=== PATIENT | male | born 1975 | race African-American/Black ===

== ENCOUNTER 2021-01-15 19:07 | Observation (INO) | payer OTHER, SELFPAY ==
--- NOTE | ~2021-01-15 | CT_ITS ---
EXAMINATION: CT brain wo con DATE: 01/15/2021 20:23 INDICATION: Confusion. TECHNIQUE: Computed tomography (CT) of the head was performed without intravenous contrast. The mA wa s adjusted according to patient size. Iterative reconstruction technique was employed. The dose-lengt h product was 983.67 mGy-cm. COMPARISON: None FINDINGS: There is no intracranial hemorrhage, acute infarction, or abnormal intracranial mass lesion . The ventricles are normal in size. The orbits are normal. There is mild mucosal thickening in the e thmoid sinuses. The mastoid air cells are normal. IMPRESSION: 1. Normal brain. Reviewed, dictated and finalized at location A. IMPRESSION: 1. Normal brain.
--- NOTE | ~2021-01-15 | XR_ITS ---
EXAMINATION: XR chest 1V portable DATE: 01/15/2021 20:26 INDICATION: Transient alteration of awareness. TECHNIQUE: A single frontal view of the chest was obtained on 2 radiographs. COMPARISON: None. FINDINGS: There is no pneumonia, pleural effusion, or pneumothorax. The heart size is normal. IMPRESSION: 1. No acute cardiopulmonary disease. Reviewed, dictated and finalized at location A.
--- NOTE | 2021-01-15 19:19 | PC.NURSE ---
Pt presents to ED with EMS with altered mental status. Pt responsive to but is not speaking or communicating with staff. Pt anxious with tremors. Pt has some moderate swelling with a mild abrasion noted to left side of face. Pt has no other obvious signs of trauma or injury. Pt able to manipulate all extremities without difficulty. Pt with $240 wren and multiple lighters in michelet pockets. Money and lighters given to charge to lock in safe.
[2021-01-15 19:25] VITALS: BP 110/84; PULSE 106; RESP 24; O2SAT 95
--- NOTE | 2021-01-15 19:38 | ED.AMS ---
HPI - Altered Mental Status General Chief Complaint: Altered Mental Status Stated Complaint: ams Time Seen by Provider: 01/15/21 19:28 History of Present Illness HPI narrative: Patient brought to the emergency room by ambulance because of found laying down on the ground, no significant other around him at that time, patient found to be jittery, restless, anxious, confused. No more details at this time. Related Data Allergies Allergy/AdvReac Type Severity Reaction Status Date / Time tramadol Allergy Unknown Unverified 07/01/14 16:06 Review of Systems Review of Systems: ROS unobtainable: Yes unobtainable due to mental status PMFSH Past Medical History Medical History (Updated 01/15/21 @ 23:32 by Faizan Fall MD) Hypertension Nicotine dependence Polysubstance abuse Surgical History Surgical History (Updated 01/15/21 @ 23:06 by Ashleigh Hammond PA-C) No history of previous surgery Family History Family History (Updated 01/15/21 @ 23:07 by Ashleigh Hammond PA-C) Other Unknown family medical history Social History Social History Social History: He smokes 1.5 packs of cigarettes a day. Admits to marijuana and methamphetamine use. Unable to designate a surrogate decision maker at this time. Exam Narrative: Exam Narrative: General appearance: Well-developed, well-nourished, restless, unable to lay down still Skin: Normal color Head: Normocephalic, nontraumatic Eyes: Clear conjunctiva ENT: Oropharynx normal, ears normal, nose normal Neck: Supple, nontender Chest and respiratory: Airway patent, no respiratory distress, no accessory muscle use Heart: Regular rate/rhythm Abdomen: Soft, nontender, no organomegaly, quiet bowel sounds Vascular: Normal peripheral pulses, normal capillary refill. Musculoskeletal: Patient keeps moving all over the bed, Neurologic: Alert, does not follow verbal commands Course Course Emergency Course: Stable Reevaluation(s) Reevaluation #1: Few minutes ago patient's called the ED and told him that the patient sent her a text message telling her that he would like to kill himself. Date: 01/15/21 Time: 23:31 Vital Signs Vital signs: Vital Signs Pulse Rate 106 H 01/15/21 19:25 Respiratory Rate 24 H 01/15/21 19:25 Blood Pressure 110/84 01/15/21 19:25 Pulse Oximetry 95 01/15/21 19:25 Temperature 36.7 C 01/15/21 21:33 Pulse Rate 108 H 01/15/21 21:33 Respiratory Rate 17 01/15/21 21:33 Blood Pressure 119/81 01/15/21 21:33 Pulse Oximetry 98 01/15/21 21:33 MDM - Altered Mental Status MDM Narrative Medical decision making narrative: Patient found to be confused at the side of the road, no significant other at the site at that time. Drugs, intracranial pathology, are my concern. Labs, CT head, UA, urine drug screen, chest x-ray, EKG, IV fluid ordered. Further plan to follow Differential Diagnosis Differential diagnosis: Likely alcoholic intoxication, altered mental status, delirium, hypoglycemia, hyponatremia, subarachnoid hemorrhage and sepsis Lab Data Result diagrams: 01/15/21 19:58 01/15/21 19:58 Labs: Lab Results 01/15/21 01/15/21 01/15/21 Range/Units 19:58 19:58 19:58 WBC 4.5 (4.5-10.0) K/mm3 RBC 4.64 (4.6-6.20) M/mm3 Hgb 14.5 (14.0-18.0) g/dL Hct 39.6 L (42.0-52.0) % MCV 85.3 (80-100) fl MCH 31.3 (26-34) pg MCHC 36.6 H (32-36) g/dl RDW 13.5 (11.5-14.5) % Plt Count 179 (150-375) k/mm3 MPV 11.2 H (7.4-10.4) fl Immature Gran % (Auto) 0.2 (0-0.5) % Neut % (Auto) 76.7 H (45.5-73.1) % Lymph % (Auto) 20.2
[2021-01-15 20:02] LABS: Alveolar/Arterial O2 Gradient 17.7 mmHg; Base Excess ABG -0.9 mEq/l (+/-2.0); Fractional Inspired Oxygen 21 %; HCO3 ABG 25.4 mEq/l (22.0-26.0); Oxygen Content ABG 18.6 %vol (16.0-22.0); Oxyhemoglobin 91.3 % THb (90.0-100.0); PCO2 ABG 48.3 mmHg (35.0-45.0); PO2 ABG 74.2 mmHg (80.0-100.0); PO2 FiO2 Ratio Arterial Blood 3.53 %; Total Hemoglobin 14.5 g/dL (12.0-18.0); pH ABG 7.339 (7.350-7.450)
[2021-01-15 20:03] LABS: Device ROOM AIR; Modified Allen's Test Unable to perform; Site Drawn RIGHT RADIAL
[2021-01-15 20:05] LABS: Basophils Percent Auto 0.2 % (0.2-1.2); Hematocrit 39.6 % (42.0-52.0); Hemoglobin 14.5 g/dL (14.0-18.0); Immature Granulocyte Absolute 0.01 K/mm3 (0.00-0.031); Immature Granulocyte Percent A 0.2 % (0-0.5); Lymphocytes Absolute Auto 0.91 K/mm3 (0.9-3.2); Lymphocytes Percent Auto 20.2 % (18.3-44.2); Mean Corpuscular HGB Conc 36.6 g/dl (32-36); Mean Corpuscular Hemoglobin 31.3 pg (26-34); Mean Corpuscular Volume 85.3 fl (80-100); Mean Platelet Volume 11.2 fl (7.4-10.4); Monocytes Absolute Auto 0.1 K/mm3 (0.1-0.6); Monocytes Percent Auto 2.7 % (2.6-8.5); Neutrophils Absolute Auto 3.5 K/mm3 (1.3-6.7); Neutrophils Percent Auto 76.7 % (45.5-73.1); Platelet Count Result 179 k/mm3 (150-375); Red Blood Count 4.64 M/mm3 (4.6-6.20); Red Cell Distribution Width 13.5 % (11.5-14.5); White Blood Count 4.5 K/mm3 (4.5-10.0)
--- NOTE | 2021-01-15 20:12 | PC.NURSE ---
Pt to radiology via cart.
[2021-01-15 20:15] LABS: INR 1.2; Prothrombin Time 15.5 Seconds (11.1-14.7)
[2021-01-15 20:16] LABS: Partial Thromboplastin Time 25.9 SECONDS (22.3-36.8)
[2021-01-15 20:18] LABS: Lactic Acid Reflex 1.5 mmol/L (0.7-2.1)
[2021-01-15 20:19] LABS: Acetaminophen < 10 ug/mL (10-30); Alanine Aminotransferase 22 U/L (4-50); Albumin Level 4.1 g/dL (3.5-5.1); Alkaline Phosphatase 59 U/L (38-126); Ammonia 14 umol/L (9-30); Anion Gap 9 mmol/L (8-16); Aspartate Amino Transferase 36 U/L (17-59); Bilirubin,Total 0.9 mg/dL (0.2-1.3); Blood Urea Nitrogen 10 mg/dL (9-20); Calcium 8.5 mg/dL (8.4-10.2); Carbon Dioxide 26 mmol/L (22-30); Chloride 112 mmol/L (98-107); Creatine Kinase 202 U/L (55-170); Estimated Glomerular Filt Rate > 60; Ethanol < 10 mg/dL (<10); Glucose 87 mg/dL (75-110); Potassium 4.1 mmol/L (3.4-5.0); Salicylate < 1.0 mg/dL (2-20); Sodium 147 mmol/L (137-145)
[2021-01-15] MEDS: SODIUM CHLORIDE 0.9% IV 1,000 ML 999 ML IV CONT (20:22)
[2021-01-15 20:23] LABS: Add Urine Microscopic? YES; Amorphous Sediment Urine Few; Appearance Urine Cloudy (Clear); Bacteria Urine Trace /hpf; Bilirubin Urine 1+ (Negative); Blood Urine Negative (Negative); Color Urine Amber (Yellow); Glucose Urine UA Negative (Negative); Hyaline Casts Urine 50+ /lpf; Ketones Urine Negative (Negative); Leukocyte Esterase Ur Negative LEU/UL (Negative); Mucus Urine Heavy /lpf; Nitrate Urine Negative (Negative); Protein Urine 2+ mg/dL (Negative); Specific Grav Ur 1.027 (1.001-1.035); WBC Urine 0-3 /hpf
[2021-01-15 20:49] LABS: Thyroid Stimulating Hormone 0.199 uIU/mL (0.465-4.680)
[2021-01-15 20:55] LABS: Barbiturate Screen Urine Negative (Negative); Benzodiazepines Screen Urine Negative (Negative)
[2021-01-15 21:13] LABS: Cannabinoid Screen Urine Positive (Negative); Cocaine Screen Urine Negative (Negative); Methadone Screen Urine Negative (Negative); Opiate Screen Urine Negative (Negative); Phencyclidine Screen Urine Negative (Negative)
--- NOTE | 2021-01-15 21:22 | PC.NURSE ---
Pt resting on cart in its lowest position. Remains responsive to name with altered mental status. Pt remains anxious with tremors.
--- NOTE | 2021-01-15 21:30 | PC.NURSE ---
Dr. Fall presented to bedside. Pt noted to be more alert and responsive and speaking with staff. Pt answers some questions appropriately while other answers are non-sensible or speech incoherent. Pt able to provide name and birthday and is aware that he is in a hospital. Pt states he has a home but he slept outside yesterday and was drinking rain water. Pt did not provide any further information. States he does not want to go home at this time. Tremors persist. Vitals remain stable and pt in no obvious distress at this time.
[2021-01-15 21:33] VITALS: BP 119/81; PULSE 108; RESP 17; TEMP 36.7; O2SAT 98
[2021-01-15 21:33] LABS: Amphetamine Screen Urine Positive (Negative)
--- NOTE | 2021-01-15 21:34 | PC.NURSE ---
IV fluids continue to infuse due to pt constant movement. Will discontinue when completed.
--- NOTE | 2021-01-15 22:30 | PM.IMHP ---
H&P: HPI History of Present Illness Date/Time: 01/15/21 22:30 <Ashleigh Hammond PA-C - Last Filed: 01/15/21 23:21> Chief Complaint: Altered mental status. <Ashleigh Hammond PA-C - Last Filed: 01/15/21 23:21> Narrative: This is a 45-year-old male smoker with hypertension and history of polysubstance drug abuse who presented to the emergency department earlier today via EMS for evaluation of altered mental status. He was found altered, lying in the grass near an isolated road and was brought in for evaluation. He is alert in the emergency department and is aware that he is in the hospital. He has frequent uncontrolled twitching and looks very dehydrated but other than that he has no real complaints. Urine drug screen was positive for amphetamines and cannabinoids and he does admit to smoking methamphetamine earlier today. Chest x-ray and brain CT were unremarkable. Urine and labs are consistent with mild dehydration. He has no complaints at this time but is being admitted overnight as the ED physician does not feel comfortable discharging him in this state. <Ashleigh Hammond PA-C - Last Filed: 01/15/21 23:21> Review of Systems Review of Systems: Narrative: A complete review of systems was conducted. He denies fever, chills, and sweats. No recent cold or flu symptoms. Denies chest pain, pleuritic pain, and palpitations. No cough or shortness of breath. No nausea, vomiting, or diarrhea. No dysuria. No suicidal or homicidal ideation. Except as documented, all other systems were reviewed and are negative. <Ashleigh Hammond PA-C - Last Filed: 01/15/21 23:21> [facility] Past Medical History Medical History: Medical History (Updated 01/15/21 @ 23:32 by Faizan Fall MD) Hypertension Nicotine dependence Polysubstance abuse <Ashleigh Hammond PA-C - Last Filed: 01/15/21 23:21> Surgical History Surgical History: Surgical History (Updated 01/15/21 @ 23:06 by Ashleigh Hammond PA-C) No history of previous surgery <Ashleigh Hammond PA-C - Last Filed: 01/15/21 23:21> Family History Family History: Family History (Updated 01/15/21 @ 23:07 by Ashleigh Hammond PA-C) Other Unknown family medical history <Ashleigh Hammond PA-C - Last Filed: 01/15/21 23:21> Social History Social History: Social History (Updated 01/15/21 @ 23:11 by Ashleigh Hammond PA-C) Social History: He smokes 1.5 packs of cigarettes a day. Admits to marijuana and methamphetamine use. Unable to designate a surrogate decision maker at this time. Smoking packs per day: 0.5 Smoking cigarettes per day: 10.0 Smoking status: Current every day smoker Tobacco type: cigarettes Alcohol intake: never Substance use type: marijuana and amphetamines Last use: 01/15/21 Spiritual care concerns: No <Ashleigh Hammond PA-C - Last Filed: 01/15/21 23:21> Meds Home Medications and Allergies Home medications: Home Medications Medication Instructions Recorded Confirmed Type amlodipine 10 mg PO DAILY 01/16/21 01/16/21 History <Ashleigh Hammond PA-C - Last Filed: 01/15/21 23:21> Allergies/Adverse reactions: Allergies Allergy/AdvReac Type Severity Reaction Status Date / Time tramadol Allergy Unknown Unknown Verified 01/16/21 02:01 <Ashleigh Hammond PA-C - Last Filed: 01/15/21 23:21> Vital Signs Vital Signs - 24 hr 01/15/21 19:25 01/15/21 21:33 Temperature 98.1 F Pulse Rate 106 H 108 H Respiratory Rate 24 H 17 Blood Pressure 110/84 119/81 Pulse Oximetry 95 98 <Ashleigh Hammond PA-C - Last Filed: 01/15/21 23:21> Exam Narrative: Exam Narrative: General: Well-developed male supine in bed. His eyes are closed when I enter the room and when I say his name he jolts awake. HEENT: Normocephalic, atraumatic. Pupils are sluggishly reactive. Sclerae anicteric. Conjunctiva injected. Tacky mucous membranes. Lips are dry. Oropharynx poorl
--- NOTE | 2021-01-15 23:15 | PC.NURSE ---
, Kori, called into ED and states pt has hx of methamphetamine use. States pt has been paranoid and stating that the police are watching him. states she and pt has been having problems and she put him in a motel in [place]. States she has not spoken to him since 12p today so she called the motel to do a wellness check and was advised that pt was in ED.
[2021-01-15 23:36] VITALS: BP 153/84; PULSE 108; RESP 20; TEMP 36.9; O2SAT 96
--- NOTE | 2021-01-15 23:37 | PC.NURSE ---
called back to gather further information. states pt has hx of methamphetamine and marijuana use. Also states that pt has hypertension and anxiety and is non compliant with medications. Also states pt has Hepatitis C and is HIV +. also states that pt has voiced to her and text her stating that he feels suicidal and she would like pt to be placed on a 72 hr hold. ED charge notified and states pt will upgraded to ICU.
[2021-01-16] VITALS (8 sets, daily range): BP systolic 100–150; BP diastolic 63–103; PULSE 104–112; RESP 12–22; TEMP 36.4–36.8; O2SAT 95–99
[2021-01-16] MEDS: DEXTROSE 5%/0.45% SOD CHL 1,000 ML 100 ML IV CONT ×2 (00:34→09:37)
--- NOTE | 2021-01-16 00:44 | PC.NURSE ---
Report called to receiving nurse. Ok to send pt to floor.
--- NOTE | 2021-01-16 01:00 | ADMGEN ---
This patient, Virgilio Torrez, was admitted to Intensive Care Unit-3. Patient/family oriented to hospital policies and general routines including ID bracelet, bed and alarms, visiting hours, pain management, procedures, bathroom and other care routines, personal items, smoking policy, room service/diet, and visiting hours. Information on how to activate the Rapid Response Team has been discussed. Patient/Family are encouraged to report perceived risks to care and to ask questions if they do not understand what they are told or what they should do.
[2021-01-16 05:08] LABS: Anion Gap 5 mmol/L (8-16); Blood Urea Nitrogen 11 mg/dL (9-20); Calcium 8.5 mg/dL (8.4-10.2); Carbon Dioxide 28 mmol/L (22-30); Chloride 112 mmol/L (98-107); Creatine Kinase 267 U/L (55-170); Estimated CRCL calculation 98 ml/min; Estimated Glomerular Filt Rate > 60; Glucose 93 mg/dL (75-110); Sodium 145 mmol/L (137-145)
[2021-01-16] MEDS: ONDANSETRON INJ 4 MG/2 ML VIAL IV PUSH (05:38)
--- NOTE | 2021-01-16 07:51 | ECG_ITS ---
Measurements Intervals [place] Rate: 110 P: 76 NM: 164 QRS: -54 QRSD: 100 T: 61 QT: 400 QTc: 543 Interpretive Statements SINUS TACHYCARDIA POSSIBLE LEFT ATRIAL ENLARGEMENT INCOMPLETE RIGHT BUNDLE BRANCH BLOCK LEFT ANTERIOR FASCICULAR BLOCK ABNORMAL ECG Electronically Signed On 01-16-2021 8:19:11 CDT by Chidi Alexis D.O.
[2021-01-16] MEDS: NICOTINE (*PBKC) 21 MG PATCH 1 PATCH TRANSDERM (09:37)
--- NOTE | 2021-01-16 14:45 | PC.NURSE ---
at 1415 pt signed AMA paperwork after answering all questions appropriately,Notified Dr. Branden dee pt's plans with no new orders, notified charge of pt's AMA plans. at 1443 pt left via w/c, stated he had called a taxi to get home
--- NOTE | 2021-02-09 14:04 | PM.DS ---
DS: Admitting Diagnosis Admitting Diagnosis Admitting Diagnosis: (1) Altered mental status: Qualifiers: Altered mental status type: delirium Qualified Code(s): R41.0 - Disorientation, unspecified <Ashleigh Valles LANDON Hammond - Last Filed: 01/15/21 23:21> Code(s): R41.82 - Altered mental status, unspecified <Ashleigh AdamsSANJU fisherC - Last Filed: 01/15/21 23:21> Status: Acute <Ashleigh HammondSANJUC - Last Filed: 01/15/21 23:21> Assessment and Plan: Patient is altered, likely due to methamphetamine use. Workup is otherwise unremarkable. Patient will be hydrated and monitored overnight. No other workup planned at this time. <Ashleigh Valles LANDON Hammond - Last Filed: 01/15/21 23:21> (2) Polysubstance abuse: Code(s): F19.10 - Other psychoactive substance abuse, uncomplicated <Ashleigh Valles SANJU HammondC - Last Filed: 01/15/21 23:21> Status: Acute <Ashleigh AdamsSANJU fisherC - Last Filed: 01/15/21 23:21> Assessment and Plan: Urine drug screen is positive for cannabinoids and amphetamines. <Ashleigh Valles LANDON Hammond - Last Filed: 01/15/21 23:21> (3) Hypertension: Code(s): I10 - Essential (primary) hypertension <Ashleigh Valles LANDON Hammond - Last Filed: 01/15/21 23:21> Status: Acute <Ashleigh AdamsSANJU fisherC - Last Filed: 01/15/21 23:21> Assessment and Plan: Blood pressures were reviewed and they are stable. Continue to monitor closely. <Ashleigh GIman Hammond PA-C - Last Filed: 01/15/21 23:21> (4) Nicotine dependence: Code(s): F17.200 - Nicotine dependence, unspecified, uncomplicated <Ashleigh Valles SANJU HammondC - Last Filed: 01/15/21 23:21> Status: Acute <Ashleigh Valles SANJU HammondC - Last Filed: 01/15/21 23:21> Assessment and Plan: Patient smokes about 1.5 packs of cigarettes a day. Nicotine patch available at his request. DS: Discharge Diagnosis Discharge Diagnosis (1) Altered mental status: Qualifiers: Altered mental status type: delirium Qualified Code(s): R41.0 - Disorientation, unspecified Code(s): R41.82 - Altered mental status, unspecified Status: Acute Assessment and Plan: Patient is altered, likely due to methamphetamine use. Workup is otherwise unremarkable. Patient will be hydrated and monitored overnight. No other workup planned at this time. (2) Polysubstance abuse: Code(s): F19.10 - Other psychoactive substance abuse, uncomplicated Status: Acute Assessment and Plan: Urine drug screen is positive for cannabinoids and amphetamines. (3) Hypertension: Code(s): I10 - Essential (primary) hypertension Status: Acute Assessment and Plan: Blood pressures were reviewed and they are stable. Continue to monitor closely. (4) Nicotine dependence: Code(s): F17.200 - Nicotine dependence, unspecified, uncomplicated Status: Acute Assessment and Plan: Patient smokes about 1.5 packs of cigarettes a day. Nicotine patch available at his request. DS: Summary Hospital Course Reason for hospitalization: Altered mental status Hospital Course: Patient was admitted to intensive care unit he had a positive urine for amphetamine. He was being monitored and had one-to-one sitter Patient left AMA Status at Discharge Cognitive/behavioral status at discharge: AAOX3 Overall status at discharge: patient is progressing back to baseline Time Spent with Patient Time attestation: Total time spent providing and/or coordinating discharge services: Specific discharge activities: LEFT AMA Exam Narrative: Exam Narrative: General: Well-developed male supine in bed. His eyes are closed when I enter the room and when I say his name he jolts awake. HEENT: Normocephalic, atraumatic. Pupils are sluggishly reactive. Sclerae anicteric. Conjunctiva injected. Tacky mucous membranes. Lips are dry.
== END 2021-01-16 14:44 | disposition left against medical advice (07) ==
LOC: ANHED 21:32 → ANH3MED 23:11 → ANHICU 23:45
PROVIDERS: Physician Assistant; Admitting Provider Family Medicine; Emergency Provider Emergency Medicine; PCP Internal Medicine Infectious Disease; Visit Provider Family Medicine
DX: R41.82 Altered mental status, unspecified (principal); R45.851 Suicidal ideations; E86.0 Dehydration; I10 Essential (primary) hypertension; F17.210 Nicotine dependence, cigarettes, uncomplicated; F15.90 Other stimulant use, unspecified, uncomplicated; F12.90 Cannabis use, unspecified, uncomplicated; Z53.29 Procedure and treatment not carried out because of patient's decision for other reasons
CPT/HCPCS: 36415; 36600; 51701; 70450; 71045; 80048; 80053; 80307; 81001; 82140; 82550; 82805; 83605; 84443; 85025; 85610; 85730; 87040; 93005; 96360; 96361; 96374; 99285; A9270; G0378; G0379; J2405; J7030